=== PATIENT | female | born 1970 | race Caucasian/White ===

== ENCOUNTER 2017-09-01 18:59 | Emergency (ER) | payer MEDICAID ==
[2017-09-01 22:22] LABS: ADD MAN DIFF? NO
[2017-09-01] MEDS: predniSONE 20 MG TAB PO (22:28)
[2017-09-01 22:39] LABS: BASOPHIL # 0.1 10^3/ul (0.0-0.1); BASOPHILS % 0.4 % (0.0-2.0); EOSINOPHILS # 1.2 10^3/ul (0.0-0.5); EOSINOPHILS % 10.2 % (0.0-7.0); HEMATOCRIT 41.2 % (37.0-47.0); HEMOGLOBIN 14.2 g/dl (12.0-16.0); LYMPHOCYTES # 3.1 10^3/ul (0.8-2.9); MEAN CORPUSCULAR HEMOGLOBIN 29.6 pg (29.0-33.0); MEAN CORPUSCULAR HGB CONC 34.5 g/dl (32.0-37.0); MEAN PLATELET VOLUME 9.9 fl (7.4-10.4); MONOCYTE # 0.6 10^3/ul (0.3-0.9); MONOCYTES % 5.1 % (0.0-11.0); PLATELET COUNT 291 10^3/UL (140-415); RED BLOOD COUNT 4.79 10^6/ul (4.20-5.40); RED CELL DISTRIBUTION WIDTH 12.8 % (11.5-14.5)
[2017-09-01 22:39] LABS: WHITE BLOOD COUNT 12.1 10^3/ul (4.8-10.8)
[2017-09-01 22:55] LABS: ANION GAP 13 (8-16); BLOOD UREA NITROGEN 8 mg/dl (7-20); CALCIUM 9.3 mg/dl (8.4-10.2); CARBON DIOXIDE 27 mmol/L (21-31); CHLORIDE 104 mmol/L (97-110); CREATININE 0.75 mg/dl (0.44-1.00); GLUCOSE 96 mg/dl (70-220); POTASSIUM 3.9 mmol/L (3.5-5.1); SODIUM 140 mmol/L (135-144)
[2017-09-01 23:08] LABS: B-TYPE NATRIURETIC PEPTIDE 40 PG/ML (0-125)
[2017-09-01 23:15] LABS: TROPONIN-I < 0.012 ng/ml (0.00-0.12)
[2017-09-01] MEDS: ALBUTEROL 0.083% (NEB) 2.5 MG/3 ML AMP HHN (23:52)
[2017-09-01] MEDS: IPRATROPIUM (NEB) 0.5 MG/2.5 ML AMP HHN (23:52)
[2017-09-02] MEDS: ASPIRIN 81 MG TAB PO (00:17)
== END 2017-09-02 01:05 | disposition home or self-care (01) ==
LOC: E/R 09-02 01:05
DX: J45.901 Unspecified asthma with (acute) exacerbation (principal); J20.9 Acute bronchitis, unspecified
CPT/HCPCS: 36415; 71045; 80048; 83880; 84484; 85025; 93005; 94644; 99285-25